=== PATIENT | male | born 1980 | race Caucasian/White ===

== ENCOUNTER 2021-07-12 21:57 | Emergency (ER) | payer BC ==
[~2021-07-12] VITALS: Ht 185.4 cm; Wt 63.5 kg
[~2021-07-12 21:57] MED LIST: DOXYCYCLINE HY100 MG PO
== END 2021-07-12 23:56 | disposition home or self-care (01) ==
LOC: ED 21:57
DX: S51.812A Laceration without foreign body of left forearm, initial encounter (principal); X78.9XXA Intentional self-harm by unspecified sharp object, initial encounter; F17.200 Nicotine dependence, unspecified, uncomplicated; Z88.0 Allergy status to penicillin
CPT/HCPCS: 12004; 99283-25

== ENCOUNTER 2021-11-13 13:32 | Emergency (ER) | payer BC ==
[~2021-11-13] VITALS: Ht 185.4 cm; Wt 72.6 kg
[2021-11-13] MEDS ORDERED: ULTRAM50 MG PO (16:32)
== END 2021-11-13 16:47 | disposition home or self-care (01) ==
LOC: ED 13:32
DX: K40.90 Unilateral inguinal hernia, without obstruction or gangrene, not specified as recurrent (principal); F17.200 Nicotine dependence, unspecified, uncomplicated; Z88.0 Allergy status to penicillin
CPT/HCPCS: 74177; 80048; 83605; 85025; 99284-25; Q9967